=== PATIENT | female | born 1970 | race Caucasian/White ===

== ENCOUNTER 2025-03-15 22:27 | Inpatient (IN) | payer MEDICAID ==
[~2025-03-15] VITALS: Ht 165.1 cm; Wt 108.0 kg
--- NOTE | 2025-03-15 22:40 | ELECTROCARDIOGRAPH REPORT ---
[facility] Test Date: 2025-03-15 Test Time: 22:30:22 Pat Name: JUNAID GUERRA Department: EMERGENCY ROOM Room: ORTHO 4024 Gender: F Pricing Analyst: JANAY : 1970 Requested By: ALEXA MEANS Order Number: [id number] Reading MD: Dr. Jose Ortiz Measurements Intervals [place] Rate: 68 P: 66 NH: 153 QRS: 80 QRSD: 81 T: 23 QT: 490 QTc: 522 Interpretive Statements Sinus rhythm Low voltage, extremity and precordial leads Borderline ST elevation, lateral leads Prolonged QT interval Electronically Signed On 03-16-2025 21:39:[address] Jose Ortiz Please click the below link to view image of tracing.
--- NOTE | 2025-03-15 22:40 | Physician Documentation ---
History of Present Illness Chief Complaint: See Chief Complaint Stated Complaint: NSTEMI Time Seen by MD: 22:39 HPI Patient presents to the emergency room as a transfer from [facility] for NSTEMI. She is evaluated therefore abdominal pain. Workup including CT scan was significant for elevated troponins. She is status post cholecystectomy. Heparin initiated. Medication Reconciliation Allergies: Coded Allergies: No Known Allergies (Unverified , 03/15/25) Review of Systems ROS All review of systems negative except as per HPI Physical Exam Vital Signs: Temperature: 98.1, Source: Oral, Heart Rate: 64, Respiratory Rate: 12, BP: 125/90, Pulse Oximetry: 94, Weight: 108.000 Physical Exam General: Patient is awake, alert, oriented x4 in no acute distress and well appearing.~ Head: Normocephalic and atraumatic. Eyes: Conjunctival normal. EOMI. PERRL. ENT: Mucous membranes moist. Neck: Supple, trachea is midline. Chest: Clear to auscultation bilaterally without rales, rhonchi, or wheezes. There is no accessory muscle use or retractions. Cardiac: RRR without murmurs, gallops, or rubs. Abd: Soft, nondistended, nontender, with normoactive bowel sounds. No guarding, rebound, or rigidity. Progress Results/Orders Results/Orders Orders - PANTERA MAN MD Chest,Single View (03/15/25 22:38) Monitor (03/15/25 22:38) Saline Lock (03/15/25 22:38) Oxygen (03/15/25 22:38) Cbc/Diff (03/15/25 22:38) BMP (03/15/25 22:38) PBNP (03/15/25 22:38) Electrocardiogram (03/15/25 22:38) Hs Troponin I W Calculations (03/15/25 22:38) Hs Troponin I W Calculations (03/16/25 00:38) Hs Troponin I W Calculations (03/16/25 01:38) Vital Signs 03/15/25 22:28 Temp 98.1 Pulse 64 Resp 12 B/P (MAP) 125/90 Pulse Ox 94 EKG/XRAY/CT/US/VASC/MRI EKG : Additional Comment EKG interpreted by myself shows time of 2230, rate 68, sinus rhythm, normal axis, no ST changes Medical Decision Making Findings Patient presents to the emergency room as a transfer from [facility] for NSTEMI on heparin. Patient's abdominal pain that has unusual regarding causes for elevated troponins. CT scan performed at sending facility was negative. Sh e is status post cholecystectomy. We will admit for further investigation Departure Admitted to Inpatient Unit: yes, to hospitalist Impression: Primary Impression: NSTEMI (non-ST elevated myocardial infarction) Referrals: NO PRIMARY CARE PROVIDER (PCP) Critical Care Note Total Time (mins): 30 Critical Care Note The very real possibility of a deterioration of this patient's condition required the highest level of my preparedness for sudden, emergent intervention. I provided critical care services, which included medication orders, frequent reevaluations of the patient's condition and response to treatment, ordering and reviewing test results, and discussing the case with various consultants. Excludes time spent performing separately billable procedures. The critical care time associated with the care of the patient was 30 minutes not counting proce dures Signature Scribe Signature: No scribe Attestation: The note accurately reflects work and decisions made by me.Pantera Man MD 03/15/25 23:20 PANTERA MAN MD Mar 15, 2025 22:40
--- NOTE | 2025-03-15 22:59 | RADIOLOGY REPORT ---
CLINICAL HISTORY: CP TECHNIQUE: Single view of the chest was obtained. COMPARISON: None FINDINGS: The heart size and pulmonary vasculature are normal. The lungs are clear. IMPRESSION: NO ACUTE CARDIOPULMONARY PROCESS.
[2025-03-15] MEDS ORDERED: heparin 10,000 units/1 ML INJ IV PRN ×2 (23:15→23:30)
[2025-03-15] MEDS ORDERED: heparin 25,000 UNIT/250ml bag 250 ML IV PRN (23:15)
[2025-03-15 23:16] LABS: MEAN PLATELET VOLUME 7.2 FL (7.4-10.4); RED CELL DISTRIBUTION WIDTH 13.2 % (11.5-14.5)
[2025-03-15] MEDS ORDERED: magnesium sulf-water 2g/50mL 50 ML IV PRN (23:25)
[2025-03-15] MEDS: pantoprazole 40MG/NS 100ML BAG 100 ML IV SCH (23:25)
[2025-03-15] MEDS ORDERED: magnesium Cl slow-release 64mg tablet PO PRN (23:25)
[2025-03-15] MEDS ORDERED: magnesium hydroxide 30ml (MOM) UD suspension PO PRN (23:25)
[2025-03-15] MEDS ORDERED: potassium Cl 20 mEq SR tablet PO PRN (23:25)
[2025-03-15] MEDS ORDERED: potassium Cl 40MEQ/1/2NS 520ml 520 ML IV PRN (23:25)
[2025-03-15] MEDS ORDERED: magnesium sulf-water 4G/100mL 100 ML IV PRN (23:25)
[2025-03-15 23:27] LABS: CREATININE 0.82 MG/DL (0.40-0.90); PRO BRAIN NATRIURETIC PEPTIDE 1605 PG/ML (0-125); TOTAL CARBON DIOXIDE 31.0 MMOL/L (24-32); eCRCL 70 ML/MIN; eGFR 72 ML/MIN
[2025-03-15 23:29] LABS: APTT 53 SECONDS (22-32); INR 1.1 INR
[2025-03-15] MEDS: heparin 25,000 UNIT/250ml bag 250 ML IV PRN (23:58)
--- NOTE | 2025-03-16 00:02 | HISTORY AND PHYSICAL-Residence ---
History & Physical Providers to CC Resident Creating Document: FAISAL LYONS RES ~ History of Present Illness Primary Medical Doctor: [facility]to medical Reason for Admit\Complaint: NSTEMI History of Present Illness 54-year-old female patient with a past medical history of hypertension, morbid obesity and anxiety/depression presents to the hospital as a transfer from [place] for higher level care for her NSTEMI. The patient initially developed sharp epigastric pain on Thursday afternoon that remained persistent throughout the day, associated nausea and vomiting and no other aggravating or relieving factors. Vomitus contained food and she had about 6-7 episodes over the last two days. She recently lost a family member over the weekend and has been under a lot of emotional stress. Denies any associated shortness of breath, diaphoresis, hematemesis, heartburn. Denies radiation of the pain. Denies any alcohol use, smoking, NSAIDs use. She has been on Wegovy over the last 3-4 months for weight loss. Allergies: Coded Allergies: No Known Allergies (Unverified , 03/15/25) Past Medical History Past Medical History Hypertension (resolved with weight loss) Morbid obesity on Wegovy Anxiety/depression Past Surgical History Surgical History Comment Cholecystectomy at age 18 Breast reduction surgery Past Social History Social History Comment Lifetime nonsmoker, occasional alcohol use. Denies any other illicit drug abuse. Lives with the . Ambulates independently. ROS Constitutional: Reports: no symptoms reported Eyes: Reports: no symptoms reported ENT: Reports: no symptoms reported Respiratory: Reports: no symptoms reported Cardiovascular: Reports: no symptoms reported Gastrointestinal: Reports: no symptoms reported, abdominal pain, nausea, vomiting Genitourinary: Reports: no symptoms reported Female Genitalia: Reports: no reported symptoms Neurological: Reports: no symptoms reported Musculoskeletal: Reports: no symptoms reported Integumentary: Reports: no symptoms reported Allergic/Immunologic: Reports: no symptoms reported Hematologic/Lymphatic: Reports: no symptoms reported Endocrine: Reports: no symptoms reported Psychiatric: Reports: depression, anxiety, sleeplessness Exam Vitals: Vital Signs Date Time Temp Pulse Resp B/P (MAP) Pulse Ox O2 Delivery O2 Flow Rate FiO2 03/15/25 22:28 98.1 64 12 125/90 94 General: General: Awake and Alert, no acute distress. HEENT: Conjunctiva pink, Sclera clear, Mucus Membranes moist. Resp: Unlabored. Lungs clear to auscultation bilaterally. Heart: Regular Rate and rhythm, normal S1 and S2 without murmur, rub or gallop. Abdomen: Soft and non tender no organomegaly. Epigastric tenderness present Extremities: No cyanosis,clubbing or edema. Skin: Warm and Dry. Diagnostic Data Last Recorded Lab Results: 03/15/25225703/15/[id number] Diagnostic Data: Laboratory Tests Test 03/15/25 22:58 Prothrombin Time 11.1 SECONDS (9.0-12.0) INR International Normalized Ratio 1.1 INR Activated Partial Thromboplast Time 53 SECONDS (22-32) H Coagulation Comments Advance Care Planning Advanced Care plannin - 30 Minutes Additional Plan 1. NSTEMI: Troponin elevation at [place]- 1.12, 0.12 Troponin trend in our hospital- 2519; awaiting the other two EKG with no ST segment changes, normal sinus rhythm Aspirin 325 mg received in the other hospital. Atorvastatin 40 mg starting today. Aspirin 81 mg daily, statin and metoprolol starting in a.m. tomorrow Continue heparin drip Consult cardiology in a.m. for cardiac catheterization 2. Abdominal pain: Epigastric tenderness noted Likely atypical presentation of cardiac chest pain due to female gender Lipase normal CT abdomen and pelvis at [place] reveals no pancreatitis, normal appendix and status post cholecystectomy. Hepatomegaly and fatty liver disease noted on CT abdomen. Diverticulosis with no acute diverticulitis present Protonix 40 mg b.i.d. ordered Can be decreased to 40 mg daily after 24 hours 3. Moderate to severe degenerative disc disease at L5-S1: No gait disturbances, no back pain Outpatient evaluation 4. Morbid obesity: Fatty liver disease- NAFLD On Wegovy and has been using losing a substantial amount of weight Recommend abstaining from high cholesterol diet Follow lipid panel and A1c 5. Anxiety/depression: Restart home medications after reconciliation Lines: PIV Code status: Full code Diet: Regular DVT prophylaxis: Heparin, SCDs GI prophylaxis: Protonix Faisal Lyons PGY3, Internal medicine resident I saw and examined the pt and agree with assessment and plan as documented Continue present mgt will have cardiology see her in the morning Date of Service: Mar 16, 2025 Billing Provider: WENDI MORENO MD, DEEPANJALI, RES Mar 16, 2025 00:02 WENDI MORENO MD Mar 16, 2025 03:07
[2025-03-16] MEDS: MESSAGE TO NURSING IV ONE ×4 (00:27→23:10)
[2025-03-16] MEDS: HYDROcodone/acetaminophen 5mg/325mg tablet PO ONE (01:03)
[2025-03-16] MEDS ORDERED: FLUO20CA41 PO (01:15)
[2025-03-16] MEDS ORDERED: CLON0.1T2 PO (01:15)
[2025-03-16] MEDS ORDERED: SEMA0.253 SUBCUT (01:15)
[2025-03-16] MEDS ORDERED: ALPR-624 PO (01:15)
[2025-03-16] MEDS: pantoprazole 40MG/NS 100ML BAG 100 ML IV ONE (01:20)
[2025-03-16 02:34] VITALS: BP 112/77; PULSE 68; RESP 16; TEMP 96.4; O2SAT 98
[2025-03-16 03:05] LABS: LEUKOCYTE ESTERASE ,URINE NEGATIVE (Neg); NITRITES, URINE NEGATIVE (Neg); OCCULT BLOOD,URINE NEGATIVE (Neg)
[2025-03-16 03:23] LABS: UA COLLECTION TYPE CLN CATCH MIDSTREAM
[2025-03-16 03:33] LABS: SQUAMOUS EPITHELIAL CELL,UR MODERATE /LPF (FEW)
[2025-03-16 06:00] VITALS: BP 111/74; PULSE 66; RESP 16; TEMP 98.4; O2SAT 96
[2025-03-16] MEDS: metoprolol tartrate 12.5mg (1/2 tablet) PO SCH (07:25)
[2025-03-16] MEDS: docusate sod 100mg capsule PO SCH (07:25)
[2025-03-16] MEDS: mag hydrox/Alum hydrox/simeth 30ml oral suspension PO PRN (07:27)
[2025-03-16] MEDS ORDERED: heparin, porcine 5000 units/ml vial SQ SCH (08:00)
[2025-03-16] MEDS: K and/or MAG REPLACEMENT MC SCH (08:00)
[2025-03-16 08:53] LABS: CHOL/HDL RATIO 4.7 (0.00-4.99); CREATININE 0.89 MG/DL (0.40-0.90); LDL CHOLESTEROL 122 MG/DL (50-100); PHOSPHORUS 3.6 MG/DL (2.3-4.5); TOTAL CARBON DIOXIDE 32.6 MMOL/L (24-32); eCRCL 64 ML/MIN; eGFR 66 ML/MIN
[2025-03-16 08:56] LABS: MEAN PLATELET VOLUME 7.6 FL (7.4-10.4); RED CELL DISTRIBUTION WIDTH 13.0 % (11.5-14.5)
[2025-03-16 10:00] VITALS: BP 123/81; PULSE 73; RESP 18; TEMP 98; O2SAT 96
[2025-03-16] MEDS: potassium Cl 20 mEq SR tablet PO PRN (13:01)
[2025-03-16] MEDS ORDERED: PERFLUTREN PROTEIN-A MICROSPHR (Optison) 0.22 MG/ML 3ML VIAL IV ONE (15:25)
--- NOTE | 2025-03-16 15:29 | PROGRESS NOTE ---
Daily Progress Note Providers to CC ~ Antibiotic Timeout Antibiotic Ordered?: No Subjective No new complaints. Patient resting comfortably. Has been at bedside. Patient is chest pain free. Objective Vital Signs Date Time Temp Pulse Resp B/P (MAP) Pulse Ox O2 Delivery O2 Flow Rate FiO2 03/16/25 10:00 98.0 73 18 123/81 (95) 96 Room Air Result Diagram: 03/16/25 0812 03/16/25 0812 Awake cooperative in no acute distress. Presently chest pain free HEENT normocephalic atraumatic extraocular movements are intact Neck supple, no JVD Chest: Clear to auscultation, no wheezes crackles rhonchi Heart: Regular rate rhythm, no murmur or gallop rub Abdomen is soft nontender no organomegaly Extremities no cyanosis clubbing or edema Neuro exam is grossly nonfocal. Coagulation Studies Laboratory Tests Test 03/15/25 22:58 03/16/25 15:10 Prothrombin Time 11.1 SECONDS (9.0-12.0) INR International Normalized Ratio 1.1 INR Activated Partial Thromboplast Time 53 SECONDS (22-32) H Coagulation Comments Other Results Medications reviewed Problem\Assessment\Plan 54 years old female with a history of hypertension, morbid obesity, anxiety/depression, presented to the ER with a transferred from [facility] for higher level of care for NSTEMI. # NSTEMI: Cardiology consulted. Continue heparin drip. # anxiety/depression: Xanax p.r.n. # GI prophylaxis: Ppi #code status: Full code Date of Service: Mar 16, 2025 Billing Provider: COMPA DALE MD Common Visit Codes: [id number] INP/OBS CARE(HIGH) COMPA DALE MD Mar 16, 2025 15:29
[2025-03-16] MEDS ORDERED: HYDROcodone/acetaminophen 5mg/325mg tablet PO PRN (15:45)
--- NOTE | 2025-03-16 16:17 | CONSULTATION REPORT ---
History of Present Illness Providers to CC CC: BRIANA PARISI MD ~ Reason for Admit\Admit Dx: Cardiology consultation Refering MD: Humberto medical History of Present Illness Patient presented secondary to epigastric pain and nausea and vomiting. She has history of obesity, hypertension, anxiety/depression and bipolar one disorder. She stated she had epigastric pain on Thursday followed by episodes of nausea and vomiting. She went to the emergency department and was discharged home. On Thursday she had a 2nd episode of epigastric pain that was sharp with nausea and no vomiting. No shortness a breath. Has an associated headache. Went to [facility] and had a workup which included a CT of the chest abdomen and pelvis as well as a CTA of the head at and a CTA of the head and neck. Her imaging was unremarkable. Found to have elevated troponins and was sent for further evaluation and management. Other symptoms include dizziness for the past few weeks. No syncopal episodes. Allergies: Coded Allergies: No Known Allergies (Unverified , 03/15/25) Home Medications Home Medications Active Reported Clonidine HCl 0.1 Mg Tablet 1 Tab PO HS 30 Days Prozac* (Fluoxetine HCl) 20 Mg Capsule 1 Cap PO DAILY 30 Days Xanax (Alprazolam) 0.5 Mg Tablet 1 Tab PO Q12H PRN PRN 30 Days Wegovy (Semaglutide) 0.25 Mg/0.5 Ml Pen.injctr 0.25 Mg SUBCUT Q7D 28 Days Past Medical History Medical History Comment Hypertension Obesity Anxiety/depression/bipolar one Past Surgical History Surgical History Comment Cholecystectomy Orthopedic surgeries Breast reduction Tonsillectomy Past Family History Family History Comment No significant cardiovascular family history. Past Social History Social History Comment Lifelong never smoker. Occasional alcohol but none recently. No recreational drug use. Works as a property field inspector. Physical Exam Last Vital Signs Recorded: RN Vital Signs have been reviewed: Yes, Temperature: 98.0, Source: Temporal, Heart Rate: 73, Respiratory Rate: 18, BP: 123/81, Pulse Oximetry: 96, Weight: 108.000 Physical Exam General: Awake, alert, oriented. No apparent distress Neck: Supple. Normal range of motion. No JVD Respiratory: Lungs are clear to auscultation bilaterally. No respiratory distress. Chest: Normal shape and size. No accessory muscle use. Cardiovascular: Regular rate and rhythm. S1-S2. No murmur, gallop, rub. Gastrointestinal: Abdomen is soft, large. Nontender to palpation. Bowel sounds present. Extremities: No lower extremity edema, cyanosis or clubbing. Neurologic: Alert and oriented x4. Nonfocal Psychiatric: Normal mood and affect. Skin: Normal color. Warm and dry. Review of Systems ROS Review of systems negative except documented in HPI. Results EKG EKG Sinus rhythm. Low voltage. No acute ST changes. QTC 522 Diagram Lab Result Diagram: 03/16/2581103/16/25811 Assessment/Plan Additional Plan Patient presented secondary to epigastric pain. The following is her problem list: NSTEMI Atypical chest pain reported. EKG with no acute ST changes. --continue heparin drip --recommend cardiac catheterization. Risks, benefits and alternatives were reviewed in detail with her. She had the opportunity to ask questions and wishes to proceed. She will be scheduled for tomorrow with Dr. Casey Parisi at 6:30 a.m. --high-intensity statin --continue metoprolol tartrate --aspirin 81 mg daily --referral for cardiac rehab Hyperlipidemia Total cholesterol 210, LDL 122, triglycerides 137, HDL 48 --recommend atorvastatin. Follow up lipids in 6-12 weeks. Hypertension Blood pressure controlled. Obesity Has been taking Wegovy Case discussed with Dr. Casey Parisi who is in agreement with this plan. Supervising MD Supervising Physician: STEFANO Garcia NP Mar 16, 2025 16:17
[2025-03-16] MEDS: HYDROcodone/acetaminophen 10/325mg tab PO PRN (16:46)
[2025-03-16] MEDS: ondansetron/PF 4mg/2ml inj IV PRN (19:35)
[2025-03-16] MEDS ORDERED: pantoprazole 40MG/NS 100ML BAG 100 ML IV SCH (20:00)
[2025-03-16 22:00] VITALS: BP 114/75; PULSE 72; RESP 16; TEMP 97.7; O2SAT 96
[2025-03-16] MEDS: metoclopramide 5 mg/ml inj IV PRN (23:16)
[2025-03-16 23:40] VITALS: BP 170/103; PULSE 65; O2SAT 98
[2025-03-17] VITALS (10 sets, daily range): BP systolic 112–155; BP diastolic 73–99; PULSE 63–133; RESP 13–16; TEMP 97.8–97.9; O2SAT 93–98
[2025-03-17] MEDS: morphine 4 MG/ML inj SYRINge ONE (00:30)
[2025-03-17] MEDS ORDERED: morphine 4 MG/ML inj SYRINge IV PRN (00:30)
[2025-03-17 05:05] LABS: MEAN PLATELET VOLUME 7.4 FL (7.4-10.4); RED CELL DISTRIBUTION WIDTH 13.1 % (11.5-14.5)
--- NOTE | 2025-03-17 05:20 | ELECTROCARDIOGRAPH REPORT ---
[facility] Test Date: 2025-03-16 Test Time: 23:30:46 Pat Name: JUNAID GUERRA Department: ORTHO/NEURO Room: ORTHO [facility] B Gender: F Mud Analysis Operator: : 1970 Requested By: GRIS STAPLETON Order Number: [id number] Reading MD: Dr. Radha Parisi Measurements Intervals [place] Rate: 60 P: 67 CT: 147 QRS: 42 QRSD: 94 T: 143 QT: 539 QTc: 539 Interpretive Statements Sinus rhythm Low voltage, extremity and precordial leads Abnrm T, consider ischemia, anterolateral lds ST elevation, consider inferior injury Prolonged QT interval Electronically Signed On 03-20-2025 7:06:[address] Radha Parisi Please click the below link to view image of tracing.
[2025-03-17 05:25] LABS: CREATININE 1.03 MG/DL (0.40-0.90); PHOSPHORUS 3.4 MG/DL (2.3-4.5); TOTAL CARBON DIOXIDE 31.3 MMOL/L (24-32); eCRCL 56 ML/MIN; eGFR 56 ML/MIN
[2025-03-17] MEDS: MESSAGE TO NURSING IV ONE (05:56)
[2025-03-17] MEDS ORDERED: LIDOcaine 1% (10mg/ml) 2ml vial ONE (06:01)
[2025-03-17] MEDS ORDERED: verapamil 2.5 mg/ml inj IV ONE (06:01)
[2025-03-17] MEDS ORDERED: midazolam 1 mg/ML 2ml injection ONE (06:02)
[2025-03-17] MEDS ORDERED: fentaNYL/PF 50MCG/1 ML 2ML syringe ONE (06:02)
[2025-03-17] MEDS ORDERED: heparin 1,000unit/ml 10ml vial 10 ML ONE (06:02)
[2025-03-17] MEDS ORDERED: nitroGLYCERIN 500mcg/5mL D5W 5 ML IV ONE (06:04)
--- NOTE | 2025-03-17 06:59 | CARDIAC CATH REPORT ---
Cardiac Cath Report Providers to CC CC: BRIANA MALIK MD Procedure Comments: 1. Left Heart Catheterization 2. Selective Coronary Angiography 3. Right Radial Artery Access Brief History/Indications: 54yo woman with HTN, HLD, Obesity admitted with N/V/chest pains, found to have elevated trop. Techniques: After informed consent was obtained, the patient was brought to the cardiac catheterization laboratory and prepped and draped in usual sterile fashion for left heart catheterization and other procedures mentioned above. The right wrist was anesthetized with 1% Lidocaine and the right radial artery accessed via the Seldinger technique after which a 6Fr sheath was placed. Through this a TIG was used to engage the left ventricle, the right coronary artery, and a JL 3.5 to e ngage the left coronary artery. At the conclusion of the case the sheath was removed and hemostasis obtained with a VascBand. Findings Findings: HEMODYNAMICS: LV: 97/- mmHg LVEDP: 3 mmHg Ao: 94/61, MAP 72 mmHg CORONARY ARTERIES: Rt Dominant LMCA: Luminal Irregularities LAD: Luminal Irregularities Dx: Luminal Irregularities LCx: Luminal Irregularities OM1: Luminal Irregularities RCA: Luminal Irregularities PDA: Luminal Irregularities PL: Luminal Irregularities Results Results: 1. No significant obstructive CAD 2. RRA Access, closed with VascBand RECOMMENDATIONS: 1. Recommend uptitration of max-tolerated GDMT 2. f/u Echo to assess for Takatsubo's given recent stressors/family deaths ABEL MALIK MD Mar 17, 2025 06:59
[2025-03-17] MEDS ORDERED: LOP12.5T PO (13:06)
[2025-03-17] MEDS ORDERED: ASPI81TA53 PO (13:06)
[2025-03-17] MEDS ORDERED: ATOR20TA66 PO (13:06)
[2025-03-17] MEDS ORDERED: NITR0.4T51 SL (13:06)
[2025-03-17] MEDS ORDERED: PANT-47 PO (13:07)
--- NOTE | 2025-03-17 13:35 | DISCHARGE SUMMARY ---
Discharge Summary Providers to CC ~ Discharge Summary Admission Diagnosis: NSTEMI/ACUTE GASTRITIS Hospital Course DATE OF ADMISSION: 03/15/2025 DATE OF DISCHARGE:03/17/2025 Discharge Diagnosis\Comment: NSTEMI Operations\Procedures: Coronary angiogram Echocardiogram Consultants: Cardiology Dr. Parisi Complications: None Condition on DC: Stable New Medications: Pantoprazole Sodium (PROTONIX tablet) 40 Mg Tablet.dr 40 MG PO DAILY for 30 Days, #30 TAB.SR Aspirin (Children's Aspirin) 81 Mg Tab.chew 81 MG PO DAILY for 30 Days, #30 TAB.CHEW Atorvastatin Calcium (Atorvastatin Calcium) 20 Mg Tablet 40 MG PO DAILY for 30 Days, #30 TAB Metoprolol Tartrate (Lopressor tablet) 25 Mg Tablet 12.5 MG PO BID for 30 Days, #60 TAB Hold for SBP below 100mm Hg Hold for Heart Rate below 60. Nitroglycerin SL* (Nitrostat SL*) 0.4 Mg Tablet 0.4 MG SL Q5MIN PRN for Chest pain Q5min PRNx3-call MD for 30 Days, #30 TAB Continued Medications: Alprazolam (Xanax) 0.5 Mg Tablet 1 TAB PO Q12H PRN PRN for anxiety for 30 Days, #60 TAB 0 Refills Clonidine HCl (Clonidine HCl) 0.1 Mg Tablet 1 TAB PO HS for 30 Days, #30 TAB 0 Refills Fluoxetine Hcl* (Prozac*) 20 Mg Capsule 1 CAP PO DAILY for 30 Days, #30 CAP Semaglutide (Wegovy) 0.25 Mg/0.5 Ml Pen.injctr 0.25 MG SUBCUT Q7D for 28 Days, #2 ML 0 Refills Discharge Summary: Reason for admission: 54-year-old female with a history of hypertension, morbid obesity, anxiety and depression, presented as a transfer from [facility] for higher level of care for non-STEMI. Patient described having sharp epigastric pain which persisted throughout the day, associated with nausea and vomiting. Emesis contained food she had eaten 67 hours ago. Please refer to admission H&P for more details. Hospital course: Patient was admitted on the monitored floor and the hospital course is as follows. #NSTEMI: Patient treated with IV heparin. Troponin was 2519 Cardiology was consulted. Patient underwent an angiogram which showed no significant obstructive CAD. Patient is being discharged on p.o. nitroglycerin PRN, metoprolol and is advised to follow up with her PCP and Cardiology # nausea/vomiting: Treated with IV Zofran. Patient has been started on Protonix. # code status: Patient was kept as a full code. Discharge exam: I examined the patient on the day of discharge. Gen. awake alert oriented asymptomatic HEENT: Normocephalic, atraumatic, pupils round reactive to light and accommodation, extraocular movements are intact, sclera anicteric, conjunctiva pinkish, moist oral mucosa, no rash or ulcers. NECK: Supple, no JVD, trachea midline. CHEST: Clear to auscultation, no wheezes crackles or rhonchi. HEART: Regular rate rhythm, no murmur gallop or rub. ABDOMEN: Soft, nontender, no organomegaly. EXTREMITIES: No cyanosis clubbing or edema. NEURO EXAM: Grossly nonfocal. MUSCULOSKELETAL : No joint swelling or deformities. SKIN: No rash or ulcers noted. Disposition : Home. Patient is advised to return to the ER if she continues to have any chest pain nausea vomiting black stools or blood in the stool. *Problems/Diagnosis: (1) NSTEMI (non-ST elevated myocardial infarction) Status: Acute Total Time Spent on D/C: > 30 Minutes Date of Service: Mar 17, 2025 Billing Provider: COMPA DALE MD Common Visit Codes: 11794-ZZP/OBS DISCH DAY >30min COMPA DALE MD Mar 17, 2025 13:34
--- NOTE | 2025-03-17 19:38 | CARDIOLOGY REPORT ---
APPROVED REPORT EXAM: Comprehensive 2D, Doppler, and color-flow Echocardiogram. 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 3.19 cm IVC 20.16 mm FS (%) 35.5 % SV 62.5 ml CO 4.5 L/min M-Mode Dimensions Left Atrium(MM) 3.48 (2.5-4.0cm) Aortic Root 2.99 (2.2-3.7cm) Aortic Cusp Exc 2.20 (1.5-2.0cm) MV EPSS 0.4 (<0.5cm) Aortic Valve AoV Peak Yakov. 118.9 cm/s AoV VTI 22.3 cm AO Peak GR. 5.7 mmHg AO Mean GR. 3 mmHg LVOT VTI 19.49 cm LVOT Peak Yakov. 88.3 cm/s PRANAV(VTI)/BSA 2.94 cm2/m2 PRANAV (VTI) 2.94 cm2 AV DI 0.87 % Mitral Valve MV E Velocity 80.8 cm/s MV Peak Gr. 4 mmHg MV DECEL TIME 172 ms MV A Velocity 85.0 cm/s MV PHT 52 ms E/A Ratio 1.0 MVA (PHT) 4.23 cm2 MV VMax 95.6 cm/s TDI Lateral E' P. V 9.88 cm/s E/Lateral E' 8.2 Tricuspid Valve TR P. Velocity 244 cm/s RAP ESTIMATE 10 mmHg TR Peak Gr. 24 mmHg RVSP 34 mmHg LEFT VENTRICLE Normal LV size and wall thickness. Overall systolic function is normal. LV apex appears mildly hypokinetic. LVEF is 60%. RIGHT VENTRICLE RV is normal size and function. Elevated right heart pressures with an RVSP of 34 mmHg. ATRIA The left atrium size is normal. AORTIC VALVE Trileaflet AV appears mildly sclerotic without stenosis. No insufficiency. MITRAL VALVE Mild mitral annular calcification without stenosis. Trace regurgitation. TRICUSPID VALVE The tricuspid valve is normal in structure with mild regurgitation. PULMONIC VALVE The pulmonary valve is normal in structure with trace regurgitation. GREAT VESSELS The aortic root is normal in size. The ascending aorta is normal in size. The IVC is normal in size and collapses >50% with inspiration. PERICARDIUM Normal pericardium. No effusion. Other Information Study Quality: Adequate Conclusion Normal LV size and wall thickness. Overall systolic function is normal. LV apex appears mildly hypokinetic. LVEF is 60%. RV is normal size and function. Elevated right heart pressures with an RVSP of 34 mmHg. The left atrium size is normal. Trileaflet AV appears mildly sclerotic without stenosis. No insufficiency. Mild mitral annular calcification without stenosis. Trace regurgitation. The tricuspid valve is normal in structure with mild regurgitation. The pulmonary valve is normal in structure with trace regurgitation. Normal pericardium. No effusion.
== END 2025-03-17 15:55 | disposition home or self-care (01) | DRG 190 ==
LOC: ER 22:28 → ED HOLD 23:26 → ORTHO 4S 03-16 02:25
PROVIDERS: ADMIT Internal Medicine; ATTEND Internal Medicine
PROC: 4A023N7 Measurement of Cardiac Sampling and Pressure, Left Heart, Percutaneous Approach (ICD-10-PCS; principal; 2025-03-17)
PROC: B2151ZZ Fluoroscopy of Left Heart using Low Osmolar Contrast (ICD-10-PCS; 2025-03-17)
DX: I21.4 Non-ST elevation (NSTEMI) myocardial infarction (principal); E66.01 Morbid (severe) obesity due to excess calories; I10 Essential (primary) hypertension; F41.9 Anxiety disorder, unspecified; R51.9 Headache, unspecified; F31.9 Bipolar disorder, unspecified; K76.0 Fatty (change of) liver, not elsewhere classified; M51.379 Other intervertebral disc degeneration, lumbosacral region without mention of lumbar back pain or lower extremity pain; R11.2 Nausea with vomiting, unspecified; E78.5 Hyperlipidemia, unspecified; Z68.39 Body mass index [BMI] 39.0-39.9, adult; Z90.49 Acquired absence of other specified parts of digestive tract
CPT/HCPCS: 36415; 71045; 80048; 80061; 81001; 83036; 83735; 83880; 84100; 84484; 85025; 85610; 85730; 87081; 93005; 93306; 93458; 99152; 99153; 99285; A4615; A6258; C1894; G0378; J1644; J2003; J2250; J2270; J2405; J2470; J2765; J3010; J3490; J7030; Q9967